=== PATIENT | male | born 1995 | race Two or more races ===

== ENCOUNTER 2018-01-28 20:55 | Emergency (ER) | payer OTHER ==
--- NOTE | 2018-01-28 21:07 | PDOC ---
Rapid Medical Evaluation Time Seen by Provider: 01/28/18 21:05 Medical Evaluation: 01/28/18 21:05 I have performed a brief-in person evaluation of this patient in triage. The patient presents to the ER c/o: distal left 5th finger avulation lac/ superficial Cutting an Onion while working at a [employer] in [facility] Last tetanus 5 years ago Pertinent PE findings:Left 5th distal finger avulation lac/superficial I have ordered the followin The patient will proceed to the ED for further evaluation.
[2018-01-28 21:10] VITALS: BP 140/104; PULSE 63; TEMP 98.5; BMI 20.5
--- NOTE | 2018-01-28 21:12 | PDOC ---
History of Present Illness - General Chief Complaint: Injury Stated Complaint: LACERATION Time Seen by Provider: 01/28/18 21:05 History Source: Patient Exam Limitations: No Limitations - History of Present Illness Initial Comments: 01/28/18 21:10 23 yo M presents to the ER c/o left 5th distal tip superficial avulsiton lac after cutting it accidentaqlly when cutting an onion at work. Pt denies any numbness/tingling senisation. Last tetanus x5y ago Past History - Past Medical History Allergies/Adverse Reactions: Allergies Allergy/AdvReac Type Severity Reaction Status Date / Time No Known Allergies Allergy Verified 01/28/18 21:10 COPD: No - Suicide/Smoking/Psychosocial Hx Smoking History: Current every day smoker Have you smoked in the past 12 months: Yes Number of Cigarettes Smoked Daily: 10 Information on smoking cessation initiated: No Hx Alcohol Use: No Drug/Substance Use Hx: Yes Substance Use Type: Marijuana Review of Systems - Review of Systems Able to Perform ROS?: Yes Is the patient limited Turkish proficient: No Integumentary: Yes: Other (left 5th distap avulsion lac) *Physical Exam - Vital Signs Last Vital Signs Temp Pulse Resp BP Pulse Ox 98.5 F 63 17 140/104 100 01/28/18 21:06 01/28/18 21:06 01/28/18 21:06 01/28/18 21:06 01/28/18 21:06 - Physical Exam Integumentary: positive: Normal Color, Dry, Warm, Other (left 5th distal avulsion lac 1cm) *DC/Admit/Observation/Transfer Diagnosis at time of Disposition: Laceration of finger Qualifiers: Encounter type: initial encounter Finger: little finger Damage to nail status: without damage Foreign body presence: without foreign body Laterality: right Qualified Code(s): S61.216A - Laceration without foreign body of right little finger without damage to nail, initial encounter - Discharge Dispostion Disposition: HOME Condition at time of disposition: Good Decision to Admit order: No - Referrals - Patient Instructions Additional Instructions: Clean and dry for 48 horus Wound check in 2 days Tylenol as needed for pain Return to the ER for signs of infection; draiange/ redness. fever - Post Discharge Activity Forms/Work/School Notes: Back to Work Progress Note - Progress Note Progress Note: Procedure: Left 5th digit 1cm distal avulsion lac NS cleanse milo medeiros
== END 2018-01-28 21:37 | disposition home or self-care (01) ==
LOC: JERFT 20:55
DX: S61.217A Laceration without foreign body of left little finger without damage to nail, initial encounter (principal); W26.0XXA Contact with knife, initial encounter; Y93.G1 Activity, food preparation and clean up; Y92.511 Restaurant or cafe as the place of occurrence of the external cause; Y99.0 Civilian activity done for income or pay; F17.210 Nicotine dependence, cigarettes, uncomplicated
CPT/HCPCS: 99281-25

== ENCOUNTER 2021-03-30 20:19 | Emergency (ER) | payer SELFPAY ==
[2021-03-30 20:25] VITALS: BP 139/63; PULSE 74; TEMP 98.4; BMI 25.7
== END 2021-03-30 21:01 | disposition home or self-care (01) ==
LOC: JER 20:19
DX: Z20.822 Contact with and (suspected) exposure to COVID-19 (principal)
CPT/HCPCS: 99283-25; C9803; U0003; U0005

== ENCOUNTER 2022-09-01 11:15 | Emergency (ER) | payer OTHER ==
[2022-09-01 11:40] VITALS: BP 131/86; PULSE 74; RESP 18; TEMP 98.3; BMI 23.1
[2022-09-01] MEDS ORDERED: AMOX TR/POT CLAV 875MG/125MG TABLETS (FP) PO ONE (14:05)
[2022-09-01] MEDS ORDERED: AMOX TR/POT CLAV 875MG/125MG TABLETS (FP) ONE (14:09)
== END 2022-09-01 14:18 | disposition home or self-care (01) ==
LOC: JERFT 11:15
DX: K02.9 Dental caries, unspecified (principal)
CPT/HCPCS: 99283-25

== ENCOUNTER 2023-10-23 16:59 | Emergency (ER) | payer OTHER ==
[2023-10-23 17:09] VITALS: BP 125/76; PULSE 89; RESP 18; TEMP 98; BMI 21.5
[2023-10-23] MEDS ORDERED: FAMOTIDINE 20 MG TABLET ONE (17:55)
[2023-10-23] MEDS ORDERED: ACETAMINOPHEN 325 MG TABLET (FP) ONE (17:56)
[2023-10-23] MEDS ORDERED: ONDANSETRON *ODT* 4 MG TABLET ONE (17:56)
[2023-10-23] MEDS: ONDANSETRON *ODT* 4 MG TABLET SL ONE (18:00)
[2023-10-23] MEDS: ACETAMINOPHEN 500 MG TABLET (FP) PO ONE (18:00)
[2023-10-23] MEDS: FAMOTIDINE 20 MG TABLET PO ONE (18:00)
== END 2023-10-23 18:54 | disposition home or self-care (01) ==
LOC: JER 16:59
DX: R10.9 Unspecified abdominal pain (principal); R11.2 Nausea with vomiting, unspecified
CPT/HCPCS: 99283-25; Q0162